=== PATIENT | male | born 1960 | race Caucasian/White ===

== ENCOUNTER 2021-11-06 15:06 | Outpatient (CLI) | payer OTHER, SELFPAY | END 2021-11-06 15:07 | disposition home or self-care (01) | LOC: LKVREF 15:09 | PROVIDERS: PCP Family Medicine; Visit Provider Family Medicine | DX: I10 Essential (primary) hypertension (principal); R60.0 Localized edema; E66.9 Obesity, unspecified; R73.03 Prediabetes | CPT/HCPCS: 84443 ==

== ENCOUNTER 2021-11-19 08:31 | Outpatient (CLI) | payer OTHER, SELFPAY ==
[2021-11-19 14:05] LABS: Chloride* 106 mmol/L (96-114); Potassium* 3.9 mmol/L (3.6-5.1); Sodium* 142 mmol/L (135-149)
[2021-11-19 14:08] LABS: Creatinine* 1.1 mg/dL (0.5-1.5); Estimated Glomerular Filt Rate 77 ml/min
[2021-11-19 14:09] LABS: Blood Urea Nitrogen* 26 mg/dL (7-30); Calcium* 9.2 mg/dL (8.4-10.6); Carbon Dioxide* 29 mmol/L (20-32); Glucose* 127 mg/dL (60-115)
== END 2021-11-19 08:32 | disposition home or self-care (01) ==
LOC: NFLDREF 08:32
PROVIDERS: PCP Family Medicine; Visit Provider Family Medicine
DX: E66.9 Obesity, unspecified (principal); E87.6 Hypokalemia; I10 Essential (primary) hypertension; E78.1 Pure hyperglyceridemia; R60.0 Localized edema; G47.30 Sleep apnea, unspecified
CPT/HCPCS: 80048; 84443

== ENCOUNTER 2022-02-19 12:05 | Outpatient (CLI) | payer OTHER, SELFPAY ==
[2022-02-19 22:03] LABS: Chloride* 95 mmol/L (96-114); Sodium* 137 mmol/L (135-149)
[2022-02-19 22:04] LABS: Potassium* 3.3 mmol/L (3.6-5.1)
[2022-02-19 22:06] LABS: Carbon Dioxide* 34 mmol/L (20-32); Creatinine* 1.1 mg/dL (0.5-1.5); Estimated Glomerular Filt Rate 77 ml/min
[2022-02-19 22:07] LABS: Blood Urea Nitrogen* 24 mg/dL (7-30); Calcium* 9.6 mg/dL (8.4-10.6); Glucose* 109 mg/dL (60-115)
== END 2022-02-19 12:06 | disposition home or self-care (01) ==
LOC: LKVREF 15:51
PROVIDERS: PCP Family Medicine; Visit Provider Family Medicine
DX: I10 Essential (primary) hypertension (principal)
CPT/HCPCS: 80048

== ENCOUNTER 2022-05-08 08:32 | Outpatient (CLI) | payer OTHER, SELFPAY ==
[2022-05-08 13:21] LABS: Albumin* 4.1 g/dL (3.3-5.0)
[2022-05-08 13:24] LABS: Cholesterol* 122 mg/dL (90-199)
[2022-05-08 13:25] LABS: Alanine Aminotransferase* 33 U/L (4-50); Alkaline Phosphatase* 55 U/L (40-150); Aspartate Amino Transferase* 30 U/L (12-35); Bilirubin Direct* 0.3 mg/dL (0.0-0.5); Bilirubin Total* 0.6 mg/dL (0.1-1.5); HDL Cholesterol* 33 mg/dL (>=40); LDL Cholesterol Calculated 28 mg/dL (<100); Total Protein* 6.6 g/dL (6.0-8.3); Triglycerides* 306 mg/dL (40-149)
[2022-05-08 13:57] LABS: PSA Screen* 1.44 ng/mL (0.10-4.00)
== END 2022-05-08 08:33 | disposition home or self-care (01) ==
PROVIDERS: PCP Family Medicine; Visit Provider Family Medicine
DX: Z00.00 Encounter for general adult medical examination without abnormal findings (principal); E66.9 Obesity, unspecified; E78.1 Pure hyperglyceridemia; E87.6 Hypokalemia; I10 Essential (primary) hypertension; Z12.5 Encounter for screening for malignant neoplasm of prostate; Z13.6 Encounter for screening for cardiovascular disorders
CPT/HCPCS: 80061; 80076; 84153; 84443

== ENCOUNTER 2022-06-15 11:28 | Outpatient (CLI) | payer OTHER, SELFPAY ==
--- NOTE | 2022-06-15 11:51 | W.ANESCHARGE ---
Anesthesia Charges Start Date/Time Anesthesia Start Date: 06/15/22 Anesthesia Start Time: 12:19 Stop Date/Time Anesthesia Stop Date: 06/15/22 Anesthesia Stop Time: 12:52
--- NOTE | 2022-06-15 12:56 | W.ANESCHARGE ---
Anesthesia Charges Start Date/Time Anesthesia Start Date: 06/15/22 Anesthesia Start Time: 12:19 Stop Date/Time Anesthesia Stop Date: 06/15/22 Anesthesia Stop Time: 12:52
== END 2022-06-15 11:29 | disposition home or self-care (01) ==
LOC: OP CLINIC 11:28
PROVIDERS: PCP Family Medicine; Visit Provider Surgery
DX: Z12.11 Encounter for screening for malignant neoplasm of colon (principal); K57.30 Diverticulosis of large intestine without perforation or abscess without bleeding; D13.39 Benign neoplasm of other parts of small intestine
CPT/HCPCS: 00811; 45385; 88305; J2704

== ENCOUNTER 2023-06-16 08:00 | Outpatient (CLI) | payer BC, SELFPAY | END 2023-06-16 08:01 | disposition home or self-care (01) | LOC: NFLDREF 16:14 | PROVIDERS: PCP Family Medicine; Referring Provider Family Medicine; Visit Provider Family Medicine | DX: Z00.00 Encounter for general adult medical examination without abnormal findings (principal); E66.9 Obesity, unspecified; E78.1 Pure hyperglyceridemia; I10 Essential (primary) hypertension; R73.03 Prediabetes | CPT/HCPCS: 80053; 80061; 84550; 86431; G0103 ==

== ENCOUNTER 2023-07-06 18:08 | Emergency (ER) | payer BC, SELFPAY ==
--- NOTE | 2023-07-06 18:13 | CT_ITS ---
Patient: GILL GARNER Facility:?[facility] RIS Patient ID:?[id number] Site Patient ID:?[id number]. Site :?1960 Study:?CT-Neck Angio CODE STROKE W/95CC ISOVUEABOWEN NEURO -07/06/2023 6:37:53 PM Ordering Physician:MALU Final Report: INDICATION: Acute stroke. TECHNIQUE: CTA neck with contrast bolus tracking, 3D angiographic rendering using maximum intensity projection (MIP) and images permanently archived. FINDINGS: There is carotid atherosclerosis. There is no significant carotid artery stenosis or dissection. There is no significant vertebral artery stenosis or dissection. The soft tissues of the neck are within normal limits. The cervical spine is in normal alignment. Degenerative changes are noted in the cervical spine. IMPRESSION: 1. No significant carotid or vertebral artery stenosis or dissection. 2. Per preliminary report: Apical segment right lower lobe pulmonary nodule measuring 7 mm (recommend CT chest follow-up in 6-12 months). Multilevel degenerative disc disease involving the thoracic spine. Multiple dental caries and periapical lucency surrounding the left maxillary 1st molar. Please note that all CT scans at this facility use dose modulation, iterative reconstruction, and/or weight-based dosing when appropriate to reduce radiation dose to as low as reasonably achievable. Dictated by Michel Rios MD @ 07/07/2023 7:51:02 AM Signed by:?Michel Rios MD @07/07/2023 7:51:02 AM (Electronic Signature)
--- NOTE | 2023-07-06 18:13 | CT_ITS ---
Patient: GILL GARNER Facility:?[facility] RIS Patient ID:?[id number] Site Patient ID:?[id number]. Site :?1960 Study:?CT-Head Angio CODE STROKE W/95CC ISOVUEABBOTT NEURO -07/06/2023 6:38:01 PM Ordering Physician:MALU Final Report: INDICATION: Acute stroke. TECHNIQUE: CTA head with contrast bolus tracking, 3D angiographic rendering using maximum intensity projection (MIP) and images permanently archived. FINDINGS: There is scattered intracranial atherosclerotic disease. There is normal opacification of the intracranial vasculature. There is no large vessel occlusion. No aneurysm is identified. IMPRESSION: No large vessel occlusion. Please note that all CT scans at this facility use dose modulation, iterative reconstruction, and/or weight-based dosing when appropriate to reduce radiation dose to as low as reasonably achievable. Dictated by Michel Rios MD @ 07/07/2023 7:48:29 AM Signed by:?Michel Rios MD @07/07/2023 7:48:29 AM (Electronic Signature)
--- NOTE | 2023-07-06 18:13 | CT_ITS ---
Patient: GILL GARNER Facility:?[facility] RIS Patient ID:?[id number] Site Patient ID:?[id number]. Site :?1960 Study:?CT-Head W/O PETTIT NEURO [id number] 3413-07/06/2023 6:36:15 PM Ordering Physician:MALU Final Report: Indication: Stroke code. Technique: Noncontrast CT of head was performed. Comparison: None available. Findings: Brain parenchyma: Normal cool-white matter differentiation. No evidence of acute ischemia. No acute intraparenchymal hemorrhage. No mass effect or midline shift. Extra-axial spaces: No extra-axial collection. Ventricular system: Unremarkable for age. Paranasal sinuses and mastoid air cells: Near-complete opacification of the left maxillary sinus with increased central density which can be seen in the setting of fungal sinusitis. Suggestion of periapical lucency surrounding and adjacent left maxillary molar. Mild mucosal thickening in the right maxillary sinus otherwise clear. Orbits: Unremarkable. Bones: No calvarial fracture. Impression: 1. No acute intracranial abnormality identified. 2. Opacification of the left maxillary sinus with periapical lucency surrounding the adjacent left maxillary 1st molar concerning for periapical abscess. Please note that all CT scans at this facility use dose modulation, iterative reconstruction, and/or weight-based dosing when appropriate to reduce radiation dose to as low as reasonably achievable. Dictated by Brandie Dey MD @ 07/06/2023 7:04:22 PM ----- ADDENDUM ----- Impression one was relayed to Dr. Roa on 07/06/2023 7:07 p.m. Dictated by Brandie Dey MD @ Jul 06 2023 7:08PM Signed by:?Brandie Dey MD @07/06/2023 7:04:22 PM (Electronic Signature)
[2023-07-06 18:17] VITALS: BP 144/100; PULSE 66; RESP 16; TEMP 37.1; O2SAT 97; BMI 41.1
[2023-07-06 18:25] LABS: Basophils Absolute Auto 0.04 K/uL (0.00-0.30); Basophils Percent Auto 0.6 % (0.0-3.0); Eosinophils Absolute Auto 0.17 K/uL (0.00-0.50); Eosinophils Percent Auto 2.6 % (0.0-7.0); Hematocrit 47.3 % (37.0-53.0); Hemoglobin* 15.3 gm/dL (13.5-17.5); Lymphocytes Absolute Auto 1.88 K/uL (0.90-2.90); Lymphocytes Percent Auto 28.6 % (20-44); Mean Corpuscular HGB Conc 32 gm/dL (32-36); Mean Corpuscular Hemoglobin 28 pg (26-34); Mean Corpuscular Volume 87 fL (80-100); Monocytes Percent Auto 10.5 % (0.0-11.0); Neutrophils Percent Auto 57.7 % (42.0-72.0); Platelet Count* 212 K/uL (140-440); RDW Coefficient of Variation % 13.6 % (11.5-15.5); Red Blood Count 5.43 m/uL (4.30-5.90); White Blood Count* 6.58 K/uL (4.50-11.00)
[2023-07-06 18:33] VITALS: PULSE 68; O2SAT 97
[2023-07-06 18:35] LABS: Slide Review Reflex No
[2023-07-06 18:45] VITALS: PULSE 67; O2SAT 95
[2023-07-06 18:47] VITALS: BP 138/92; PULSE 69; O2SAT 95
[2023-07-06 18:57] LABS: Chloride* 103 mmol/L (96-114); Sodium* 142 mmol/L (135-149)
[2023-07-06 18:58] LABS: Potassium* 3.4 mmol/L (3.6-5.1)
[2023-07-06 19:00] LABS: Creatinine* 1.1 mg/dL (0.5-1.5); Est. Creatinine Clearance* 69.63; Estimated Glomerular Filt Rate 76 ml/min
[2023-07-06 19:01] LABS: Anion Gap 13 mEq/L (7-15); Blood Urea Nitrogen* 24 mg/dL (7-30); Calcium* 10.6 mg/dL (8.4-10.6); Carbon Dioxide* 26 mmol/L (20-32); Glucose* 95 mg/dL (60-115)
--- NOTE | 2023-07-06 19:01 | ED_ITS ---
HPI - General Adult General Date Seen: 07/06/23 Chief complaint: Neuro Symptoms/Altered Deficit Stated complaint: Lost vision R eye, sent by clinic Time Seen by Provider: 07/06/23 18:13 History of Present Illness HPI narrative: Very pleasant 63-year-old gentleman with a past medical history of hypertension, dyslipidemia, overweight, erectile dysfunction go presenting to the ER today from the optometry clinic in [place] with central retinal artery occlusion a ffecting his right eye. At about 1:00 p.m. today he had abrupt painless vision loss affecting almost all vision in his right eye. He went to an urgent care who then referred him to the Eye Clinic. He had an eye exam that revealed a right central retinal artery occlusion. 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 The letter says, ?tie was referred to our clinic from the local urgent care for loss of vision. He presented in our office (4:00 p.m.) with loss of vision in his right that it started at 1:00 p.m. today (07/06/2023). He has had a central retinal artery occlusion and the following blood work is recommended immediately to rule out GCA and run a stroke evaluation. ESR CRP Platelets Fasting blood sugar Glycosylated hemoglobin CBC PT/PTT Lipid profile NENO RF FTA-ABS Serum protein electrophoresis Hemoglobin electrophoresis Anti phospholipid antibody He presented here to the ER at [place]. He has loss of vision in his right I can only see a small speck of bright in the central vision. Sometimes he can see my face and sometimes the cabinet by me. He can not really read or count fingers or see letters. Left eye is normal. No other symptoms. No headache. No facial numbness or weakness. No trouble chewing. No numbness or weakness in his arms or legs. He has no history of AFib. He is not anticoagulated. He had been on aspirin in the past but is not taking currently. No recent eye trauma. No history of autoimmune disease. Related Data Home Medications Medication Instructions Recorded Confirmed coenzyme Q10 100 mg capsule mg PO DAILY 11/06/21 07/06/23 cholecalciferol (vitamin D3) 125 125 mcg PO QDAY 02/05/22 07/06/23 mcg (5,000 unit) capsule Previous Rx's Medication Instructions Recorded comp.stocking,thigh,long,x-lrg See Rx Instructions miscellaneous 11/06/21 .COMPLEX #12 ea sildenafil 25 mg tablet 25 - 100 mg (1 - 4 x 25 mg) PO 12/22/22 QDAY PRN sexual activity #30 tabs fenofibrate 54 mg tablet 54 mg PO QDAY #90 ea 06/18/23 furosemide 20 mg tablet 40 mg (2 x 20 mg) PO DAILY #180 06/18/23 tabs losartan 100 1 tab PO DAILY #90 tabs 06/18/23 mg-hydrochlorothiazide 25 mg tablet metoprolol succinate 50 mg 50 mg PO DAILY #90 tabs 06/18/23 tablet,extended release 24 hr potassium chloride 20 mEq 20 - 40 meq (1 - 2 x 20 mEq) PO 06/18/23 tablet,extended release BID #270 tabs rosuvastatin 40 mg tablet 40 mg PO DAILY #90 tabs 06/18/23 Allergies Allergy/AdvReac Type Severity Reaction Status Date / Time Penicillins Allergy childhood Verified 07/06/23 18:41 reaction PFSH PFSH Medical History (Updated 07/06/23 @ 19:01 by Brian Roa MD) Gout ?M10.9 - Gout, unspecified (ICD-10) Anemia ?D64.9 - Anemia, unspecified (ICD-10) Erectile dysfunction ?N52.9 - Male erectile dysfunction, unspecified (ICD-10) Obesity ?E66.9 - Obesity, unspecified (ICD-10) Prediabetes ?R73.03 - Prediabetes (ICD-10) Leg edema ?R60.0 - Localized edema (ICD-10) Surgical History (Updated 11/05/21 @ 09:54 by Arlen Calles) History of colonoscopy ?Z98.890 - Other specified postprocedural states (ICD-10) Social History Smoking Status: Former smoker (Quit years ago ) Little interest or pleasure in doing things: not at all Feeling down, depressed, or hopeless: not at all Exam Narrative: Exam Narrative: Constitutional: Appears well-developed and well-nourished. Alert. Conversant. Non toxic. HENT: Head: Atraumatic. Nose: Nose normal. Mouth/Throat: Oral mucosa is clear and moist. no trismus. Pharynx normal. Tonsils symmetric. No tonsillar enlargement, erythema, or exudate. Eyes: Conjunctivae normal. EOM normal. Pupils equal, round, and bilaterally dilated (probably from my exam in clinic) and largely on reactive to light. He is able to see small bits of vision in the right eye but says his vision in the left eye is normal. No scleral icterus. Neck: Normal range of motion. Neck supple. No tracheal deviation present. Cardiovascular: Normal rate, regular rhythm. No gallop. No friction rub. No murmur heard. Symmetric radial artery pulses Pulmonary/Chest: Effort normal. No stridor. No respiratory distress. No wheezes. No rales. No rhonchi . No tenderness. Abdominal: Soft. Bowel sounds normal. No distension. No mass. No tenderness. No rebound. No guarding. Musculoskeletal: RUE: Normal range of motion. No tenderness. No deformity LUE: Normal range of motion. No tenderness. No deformity RLE: Normal range of motion. No edema. No tenderness. No deformity LLE: Normal range of motion. No edema. No tenderness. No deformity Lymph: No cervical adenopathy. Neurological: Mental status normal. Attention normal. Alert and oriented x3. GCS 15. Memory normal. Speech fluent. Cognition normal. Cranial Nerves intact II-XII except I did not formally test gag or visual acuity. EOMI. Palate elevates symmetrically and tongue protrudes in the midline. Strength: 5/5 trapezius on the right and left 5/5 deltoid on the right and left 5/5 biceps on the right and left 5/5 triceps on the right and left 5/5 trade economist on the right and left 5/5 thumb opposition on the right and le ft 5/5 finger abduction on the right and le ft 5/5 hip flexors (L3) on the right and le ft 5/5 quadriceps (L4) on the right and lef t 5/5 tibialis anterior on the right and l eft 5/5 EHL (L5) on the right and left 5/5 gastrocnemius (S1) on the right and left 5/5 hamstring on the right and left Sensation intact to light touch in both upper extremities (C4-T1) Sensation intact to light touch in Both lower extremities (L4-S1). Finger to nose and coordination normal. Gait normal. Skin: Skin is warm and dry. No rash noted. No pallor. Normal capillary refill. Psychiatric: Normal mood. Normal affect. When discussing the potential seriousness of his acute [employer]ODUCTION ENGINE REPAIRER Ob he becomes emotional but he is appropriate and goal oriented Const: Vital Signs, click to edit/add: Vital Signs - 24 hr 07/06/23 18:17 Temperature 98.7 F Pulse Rate [Pulse Oximeter] 66 Respiratory Rate 16 Blood Pressure [Ri ght Upper Arm] 144/100 H Pulse Oximetry 97 Oxygen Delivery Me thod Room Air Course Vital Signs Vital signs: Initial Vital Signs Temperature 98.7 F 07/06/23 18:17 Temperature Source Temporal Artery Scan 07/06/23 18:17 Pulse Rate 66 07/06/23 18:17 Pulse Rhythm Regular 07/06/23 18:17 Pulse Strength 3+ Normal 07/06/23 18:17 Respiratory Rate 16 07/06/23 18:17 Blood Pressure 144/100 H 07/06/23 18:17 Blood Pressure Mean 114 H 07/06/23 18:17 Blood Pressure Position Semi-Fowlers 07/06/23 18:17 Pulse Oximetry 97 07/06/23 18:17 Oxygen Delivery Method Room Air 07/06/23 18:17 Vital Signs Temperature 98.7 F 07/06/23 18:17 Pulse Rate 66 07/06/23 18:17 Respiratory Rate 16 07/06/23 18:17 Blood Pressure 144/100 H 07/06/23 18:17 Pulse Oximetry 97 07/06/23 18:17 Oxygen Delivery Method Room Air 07/06/23 18:17 Temperature 98.7 F 07/06/23 18:17 Pulse Rate 66 07/06/23 18:17 Respiratory Rate 16 07/06/23 18:17 Blood Pressure 144/100 H 07/06/23 18:17 Pulse Oximetry 97 07/06/23 18:17 Oxygen Delivery Method Room Air 07/06/23 18:17 Medical Decision Making MDM Narrative Medical decision making narrative: This patient presented with acute painless right eye vision loss and was sent from the Eye Clinic indicating that he has already had a retina exam and has acute central retinal artery occlusion. We activated a stroke she activation and obtain initial vital signs, IV, EKG (which shows sinus rhythm). He was sent for emergent noncontrast head CT (which is resulted by verbal report from a consulting radiology showing no acute findings, no bleed). He also had acute CT angiogram of his head neck (not red or report at the time of this dictation. We made stat consultation with the stroke neurology team at [facility]. They advised against IV thrombolytics especially since were more than 4.5 hours out from onset of symptoms. There is also no benefit to thrombolytics in small studies. They indicate that there would be limited benefit to intra-arterial thrombolytics at this time. We discussed other options including intra-ocular pressure lowering with a CTs all might and or hyperbaric treatment. Stroke Neurology agrees the plan to consult [facility] to see if hyperbarics would be a benefit I called stat to [facility]. Discussed with Dr. Webb from the ER and then [facility] Milan (hyperbarics) this agrees that the patient would be a candidate for hyperbaric therapy and wants us to transfer him rapidly (but does not require air EMS) to the ER at [place] for hyperbaric therapy. Will transfer by ground EMS. While the patient was here in the ER we did administer IV CTs all my did 500 mg try to lower his intra-ocular pressure. We considered topical beta blockers but since he has baseline heart rate of 60, 1 hold off on beta blockers due to the risk of precipitating worsening bradycardia. We also had the patient perform ocular massage I have started laboratory workup to look at inflammatory markers. At the time of transfer his white count is normal and CRP is normal but none of his inflammatory markers are back. At this point would hold off on any steroids . He is not having any left eye symptoms. No other symptoms lately to suggest jaw claudication or other headache to suggest giant cell arteritis. Will administer aspirin, in case this might be a atherogenic plaque. Lab Data Labs: Lab Results 07/06/23 Range/Units 18:18 WBC 6.58 (4.50-11.00) K/uL RBC 5.43 (4.30-5.90) m/uL Hgb 15.3 (13.5-17.5) gm/dL Hct 47.3 (37.0-53.0) % MCV 87 (80-100) fL MCH 28 (26-34) pg MCHC 32 (32-36) gm/dL RDW Coeff of [place] 13.6 (11.5-15.5) % Plt Count 212 (140-440) K/uL Neut % (Auto) 57.7 (42.0-72.0) % Lymph % (Auto) 28.6 (20-44) % [place] % (Auto) 10.5 (0.0-11.0) % Eos % (Auto) 2.6 (0.0-7.0) % Baso % (Auto) 0.6 (0.0-3.0) % Neut # (Auto) 3.80 (1.7-7.0) K/uL Lymph # (Auto) 1.88 (0.90-2.90) K/uL [place] # (Auto) 0.70 (0.00-0.90) K/UL Eos # (Auto) 0.17 (0.00-0.50) K/uL Baso # (Auto) 0.04 (0.00-0.30) K/uL Abs Immat Gran (auto) 0.00 (0.00-0.30) K/uL Imm/Tot Granulo (auto) 0.0 % APTT Cancelled Imaging Data CT scan - head: Attestation: I have reviewed the pertinent imaging results. My impression: Verbal report from radiology indicates that there is no acute finding. ECG Data Attestation: I personally reviewed and interpreted this ECG as follows: Interpretation: Sinus bradycardia. Rate 58 LA 184 QRS axis normal axis. No pathologic Q-waves. ST segment/T wave: No ST segment elevation depression. QTc: 408 Discharge Plan Discharge Clinical Impression: CRAO (central retinal artery occlusion) Patient Disposition: Xfer Other Prescriptions: No Action coenzyme Q10 100 mg capsule PO DAILY sildenafil 25 mg tablet 25 - 100 mg PO QDAY PRN (Reason: sexual activity) Qty: 30 5RF Rx Instructions: administer 30 minutes to 4 hours before activity rosuvastatin 40 mg tablet 40 mg PO DAILY Qty: 90 2RF potassium chloride 20 mEq tablet extended release 20 - 40 meq PO BID Qty: 270 3RF Rx Instructions: 40mEq each morning, 20mEq each afternoon metoprolol succinate 50 mg tablet extended release 24 hr 50 mg PO DAILY Qty: 90 1RF losartan-hydrochlorothiazide 100-25 mg tablet 1 tab PO DAILY Qty: 90 1RF furosemide 20 mg tablet 40 mg PO DAILY Qty: 180 1RF fenofibrate 54 mg tablet 54 mg PO QDAY Qty: 90 2RF cholecalciferol (vitamin D3) 125 mcg (5,000 unit) capsule 125 mcg PO QDAY comp.stocking,thigh,long,x-lrg Misc See Rx Instructions miscellaneous .COMPLEX Qty: 12 1RF Rx Instructions: applied daily to legs miscellaneous; Stand Alone Forms: MyHealth Info Instructions
[2023-07-06 19:02] VITALS: BP 153/98
[2023-07-06 19:02] LABS: INR 1.04 (0.91-1.10); Partial Thromboplastin Time* 30 Seconds (23-33); Prothrombin Time 14.2 Seconds
[2023-07-06 19:04] LABS: C Reactive Protein* < 0.5 mg/dL (0.5-1.0)
[2023-07-06] MEDS: ASPIRIN EC 325 MG TABLET PO (19:05)
[2023-07-06 20:09] LABS: Erythrocyte SedimentationRate* 13 mm/hr (2-15)
== END 2023-07-06 19:11 | disposition other institution (70) ==
PROVIDERS: Emergency Provider Emergency Medicine; PCP Family Medicine
DX: H34.12 Central retinal artery occlusion, left eye (principal)
CPT/HCPCS: 36415; 70450; 70496; 70498; 80048; 85025; 85610; 85651; 85730; 86140; 93005; 96365; 99284; 99285; 99291; A9270; J1120; Q9967

== ENCOUNTER 2023-07-06 19:05 | Outpatient (CLI) | payer BC, SELFPAY | END 2023-07-06 19:06 | disposition home or self-care (01) | LOC: AMB 07-16 02:24 | PROVIDERS: PCP Family Medicine; Visit Provider Emergency Medicine | DX: H34.11 Central retinal artery occlusion, right eye (principal) | CPT/HCPCS: A0425; A0429 ==

== ENCOUNTER 2023-07-30 11:41 | Outpatient (CLI) | payer BC, SELFPAY | END 2023-07-30 11:42 | disposition home or self-care (01) | PROVIDERS: PCP Family Medicine; Visit Provider Family Medicine | DX: E87.6 Hypokalemia (principal); R45.89 Other symptoms and signs involving emotional state | CPT/HCPCS: 84443 ==

== ENCOUNTER 2023-12-10 08:15 | Outpatient (CLI) | payer BC, SELFPAY | END 2023-12-10 08:16 | disposition home or self-care (01) | LOC: LKVREF 08:16 | PROVIDERS: PCP Family Medicine; Visit Provider Family Medicine | DX: E78.1 Pure hyperglyceridemia (principal); I10 Essential (primary) hypertension | CPT/HCPCS: 80053; 80061 ==

== ENCOUNTER 2024-01-19 14:48 | Outpatient (CLI) | payer BC, SELFPAY ==
--- NOTE | 2024-01-19 15:00 | CRLHL7_ITS ---
For Patients: As a result of the Century Cures Act, medical imaging exams and procedure reports are released immediately into your electronic medical record. You may view this report before your referring provider. If you have questions, please contact your health care provider. Indication: SOLITARY PULMONARY NODULE Technique: Noncontrast CT chest Please note that all CT scans at this facility use dose modulation, iterative reconstruction, and/or weight-based dosing when appropriate to reduce radiation dose to as low as reasonably achievable. Comparison: CTA neck 07/06/2023 Findings: 5.4 millimeter right lower lobe pulmonary nodule, 51. 3.3 millimeter subpleural nodule right lower lobe, 45. Additional 3 millimeter subpleural nodule right anterior lung, . Subpleural nodule right lower lobe previously noted, measures 6.6 millimeters, . Linear subsegmental atelectasis/scarring in both lower lobes. Perifissural nodules on the left measure up to 5.9 millimeters. No infiltrate or edema. No effusion or pneumothorax. No adenopathy. Bridging osteophyte formation thoracic spine. Gallbladder absent. No adrenal nodule. Impression: Bilateral pulmonary nodules measure up to 6.6 millimeters. One year follow-up recommended. Please note that all CT scans at this facility use dose modulation, iterative reconstruction, and/or weight-based dosing when appropriate to reduce radiation dose to as low as reasonably achievable. Dictated by Remberto Cervantes MD @ 01/21/2024 9:53:19 AM (Electronically Signed)
== END 2024-01-19 14:49 | disposition home or self-care (01) ==
LOC: CT 14:48
PROVIDERS: PCP Family Medicine; Visit Provider Family Medicine
DX: R91.1 Solitary pulmonary nodule (principal); R91.8 Other nonspecific abnormal finding of lung field; Z91.89 Other specified personal risk factors, not elsewhere classified
CPT/HCPCS: 71250

== ENCOUNTER 2024-08-03 07:58 | Outpatient (CLI) | payer BC, SELFPAY | END 2024-08-03 07:59 | disposition home or self-care (01) | LOC: NFLDREF 08-08 05:06 | PROVIDERS: PCP Family Medicine; Referring Provider Family Medicine; Visit Provider Family Medicine | DX: E78.1 Pure hyperglyceridemia (principal); I10 Essential (primary) hypertension; R73.03 Prediabetes; M10.9 Gout, unspecified; Z12.5 Encounter for screening for malignant neoplasm of prostate | CPT/HCPCS: 80053; 80061; 84550; G0103 ==

== ENCOUNTER 2024-08-31 08:43 | Outpatient (CLI) | payer BC, SELFPAY ==
--- NOTE | 2024-08-31 09:00 | CRLHL7_ITS ---
For Patients: As a result of the 21st Century Cures Act, medical imaging exams and procedure reports are released immediately into your electronic medical record. You may view this report before your referring provider. If you have questions, please contact your health care provider. INDICATION: Lung nodule. TECHNIQUE: CT chest without contrast. COMPARISON: CT 01/19/2024 FINDINGS: Lungs and pleura: Pulmonary nodules are stable measuring up to 6 millimeters. No new or enlarging nodule a right lower pole micronodule not seen on the current study. Basilar atelectasis. Heart and vasculature: Heart size is normal. Thoracic aorta and pulmonary artery are normal in caliber. Coronary artery calcification. Lymph nodes/mediastinum: No mediastinal, hilar, or axillary adenopathy. Chest wall: No masses. Upper abdomen: Cholecystectomy. Bones: Unremarkable for age. IMPRESSION: 1. Pulmonary nodules appear stable. No new or enlarging nodules are seen. Nodules measure up to 6 millimeters. [employer] GUID[employer]INES - SOLID NODULES: SINGLE LOW RISK - nodule less than 6 mm: No routine follow-up. - nodule 6-8 mm: CT at 6-12 months, then consider CT at 18-24 months. - nodule greater than 8 mm: Consider CT at 3 months, PET/CT or tissue sampling. SINGLE HIGH RISK - nodule less than 6 mm: Optional CT at 12 months. - nodule 6-8 mm: CT at 6-12 months, then CT at 18-24 months. - nodule greater than 8 mm: Consider CT at 3 months, PET/CT or tissue sampling. MULTIPLE LOW RISK - nodule less than 6 mm: No routine follow-up. - nodule 6-8 mm: CT at 3-6 months, then consider CT at 18-24 months. - nodule greater than 8 mm: CT at 3-6 months, then consider CT at 18-24 months. MULTIPLE HIGH RISK - nodule less than 6 mm: Optional CT at 12 months. - nodule 6-8 mm: CT at 3-6 months, then at 18-24 months. - nodule greater than 8 mm: CT at 3-6 months, then at 18-24 months. Please note that all CT scans at this facility use dose modulation, iterative reconstruction, and/or weight-based dosing when appropriate to reduce radiation dose to as low as reasonably achievable. Dictated by Moni Ochoa MD @ 09/02/2024 7:49:03 AM (Electronically Signed)
== END 2024-08-31 08:44 | disposition home or self-care (01) ==
LOC: CT 08:46
PROVIDERS: PCP Family Medicine; Visit Provider Family Medicine
DX: R91.1 Solitary pulmonary nodule (principal); Z91.89 Other specified personal risk factors, not elsewhere classified
CPT/HCPCS: 71250

== ENCOUNTER 2024-12-20 08:44 | Day surgery (SDC) | payer BC, SELFPAY ==
[2024-12-20] VITALS (21 sets, daily range): BP systolic 131–183; BP diastolic 46–123; PULSE 55–78; RESP 13–19; TEMP 36.1–36.6; O2SAT 92–98; BMI 44.0
[2024-12-20] MEDS: TRANEXAMIC ACID 100 MG/ML INJ 1000 MG IV (08:51)
--- NOTE | 2024-12-20 09:32 | W.PM.H&PU ---
History & Physical Update History & Physical Update H&P Reviewed and patient assessed: No changes noted
--- NOTE | 2024-12-20 09:33 | P.ORPRC_ITS ---
Procedure Note Date of procedure: 12/20/24 Procedure: PREOPERATIVE DIAGNOSIS: 1. Left knee osteoarthritis POSTOPERATIVE DIAGNOSES: 1. Left knee osteoarthritis PROCEDURE: 1. Left total knee arthroplasty SURGEON: Sherwin Lowery MD VOLUNTEER FIRE FIGHTER: Sandee Hernandez P.A.-C.. An administrative personal assistant was critical for this case to aide in patient positioning, suture manipulation, arm positioning, instrument positioning, and closure. ANESTHESIA: [Spinal/General] IMPLANTS: DePuy Attune femoral posterior stabilized component size 9; DePuy Attune tibial base rotating platform size 8; DePuy Attune tibial insert rotating platform posterior stabilized polyethylene size 9, 5 mm; and an Attune patella medialized dome size 38 mm. EBL: 300 ml TOURNIQUET TIME: 117 minutes at 275 mmHg COMPLICATIONS: None evident INDICATIONS: Sree is a 64-year-old male who has chronic knee pain secondary to osteoarthritis. Symptoms have worsened despite non operative treatment. Patient is now interested in proceeding with total knee arthroplasty for improved function, decreased pain and better quality of life. Prior to the procedure, risks and benefits of the operative and non operative treatment were discussed with patient. After discussion of risks, benefits, and alternatives of surgery, informed consent was obtained and the operative site was marked. FINDINGS: Moderate to severe tricompartmental osteoarthritis with peripheral osteophyte formation. PROCEDURE: Patient was seen preoperatively and operative site was marked. Adductor canal and genicular nerve blocks were performed by anesthesia staff. Patient was then brought to the operating room, where spinal anesthesia was administered by the anesthesia staff. Patient was then placed into the supine position on the OR table and all bony prominences were well padded. Preoperative prophylactic antibiotics were administered intravenously. A tourniquet was placed on the thigh of the operative leg. The left lower extremity was prepped and draped in usual sterile fashion. A surgical time-out was performed confirming patient identity, surgical procedure, and surgical site. Operative extremity was elevated and exsanguinated with an Esmarch and tourniquet was inflated to 275 mmHg. The tourniquet remained inflated for 117 mi nutes before it was deflated. An anterior longitudinal incision was made and carried down through the subcutaneous tissues. The quadriceps tendon, medial patellar retinaculum, and patellar tendon were visualized. A medial quadriceps splitting parapatellar arthrotomy was performed. The proximal medial tibia was subperiosteal exposed distal to the joint line. The retropatellar fat pad was excised. The knee was flexed and patella everted. A curved osteotome was used to enter the semimembranous bursa medially at the level of the joint line. Medial and lateral tibial plateau osteophytes were removed with a rongeur. The medial meniscus was excised at the meniscal synovial junction. The anterior cruciate ligament was excised. A Z-retractor was placed medially and a right angle Hohmann retractor was placed anterior lateral to the lateral meniscus. A partial lateral meniscectomy was performed. The intramedullary drill was utilized to open the intramedullary canal. ?Intramedullary alignment guide was inserted. The distal femoral cutting block, set at 5 degrees of valgus with a distal femoral resection of 10 mm, was secured with pins, and the distal femoral osteotomy was performed. ?Using the posterior condylar referencing guide, femur was sized to a size 9, and pins were drilled for 3 degrees of external rotation, which corresponded with Whitesides line and the epicondylar axis. ?A 4-in-1 cutting jig was inserted at 3 degrees of external rotation. ?The anterior and posterior condylar cuts were performed followed by anterior and posterior chamfer cuts. The box cutting guide was then secured to the distal femur with pins and the box osteotomy was performed. ? ? We then turned our attention back to the tibia. ?Ranasall maneuver was performed and remainder of the lateral meniscus, medial meniscus, and PCL were excised. ?A retractor was placed along the posterior tibia. ?Extramedullary guide was secured around the ankle in line with the subcutaneous tibial crest. ?The tibial cutting block, set to remove 4 mm of bone from medial tibial plateau and 9 mm of bone from lateral tibial plateau, was secured proximally with pins. ?Tibial osteotomy was performed with care taken to protect the collateral ligaments. ?Spacer blocks were inserted, which confirmed symmetric flexion and extension gaps.?The tibia was then sized to a size 8, and tibial base plate was secured. Tibia was then prepped with the appropriate drill and punch. Trial femur and tibial components with a 5 mm tibial polyethylene component were inserted. With trial components in place, the knee was noted to be tight in both flexion and extension. Trial components were subsequently removed and tibia was recut removing an extra 2 mm of bone from the tibia. After recutting the tibia, the tibia was reprepped with the appropriate punch. Trial femur and tibial components with a 5 mm tibial polyethylene component were then reinserted. Knee was able to be brought out to full extension and had symme tric flexion-extension gaps. ?The patella was everted and osteochondral junction was exposed. ?The patella measured 27 mm in thickness. ?The patellar osteotomy was performed, leaving 17 mm of remnant patella. ?Three lug holes were drilled for the 38 mm patella button and the patella button was inserted. The knee was brought through a full range of motion. ?Soft tissue tension, collateral ligament stability, and patella tracking were confirmed to be satisfactory. ?Trial components were then removed. ??After removing the trial components, a bone plug was placed in the distal femur. The exposed bony surfaces of the tibia, femur, and patella were then thoroughly irrigated with pulse lavage and dried. ? Cement was mixed on the back table and was subsequently introduced onto the tibia and tibial base plate. ?Tibial base plate was then impacted into position, and extruded cement was removed. ?Cement was then applied to the distal femur and posterior condyles of the femoral prosthesis. ?The femoral prosthesis was impacted into position, extruded cement was removed, and a trial polyethylene was inserted. ?Knee was then brought out to full extension for remainder of drying. ?Cement was then applied to the patella and patellar button. The patella button was clamped into position, and extruded cement was removed. ?While the cement was drying, knee was soaked in a sterile iodine solution. ? After the cement had dried, the knee was flexed and the trial tibial component was removed. The tourniquet was released . The soft tissues were then irrigated with pulse lavaged and hemostasis was achieved with electrocautery. A formal size9, 5 mm rotating platform posterior stabilized polyethylene was then secured into position. ? The parapatellar arthrotomy was closed with #1 Vicryl [id number] interrupted sutures followed by a running #1 Stratafix suture. ?Subcutaneous soft tissues were again irrigated normal saline. Skin was closed with 2-0 Vicryl inverted, interrupted, subcutaneous stitches followed by running 2-0 Stratafix and 4-0 Monocryl subcuticular stitches. ?The incision was then sealed with Dermabond and sterile dressing was applied. ?The patient was then transfe rred to the recovery room in stable condition. POSTOPERATIVE PLAN: 1. Patient will be admitted to the hospital overnight for observation, where he will follow the postoperative total knee arthroplasty protocol. 2. Mobilize with physical therapy and occupational therapy. -Weight bear as tolerated right lower extremity. 3. Pain control: -Acetaminophen and Oxycodone for pain as needed. -IV pain medications for breakthrough pain. -Ice for pain and swelling. 4. Postoperative prophylactic antibiotics x2 doses 5. DVT prophylaxis: -aspirin 81 mg b.i.d. for 35 days. -SCDs 6. Follow-up in Orthopedic Clinic in 1-2 weeks.
[2024-12-20] MEDS: LACTATED RINGERS 1000 ML 1,000 ML 100 ML IV (09:50)
[2024-12-20] MEDS: SODIUM CHLORIDE 0.9 % (FLUSH) 10 ML SYRINGE IVF (09:50)
[2024-12-20] MEDS: ACETAMINOPHEN 500 MG TABLET 1000 MG PO ×3 (09:55→23:41)
[2024-12-20] MEDS: OXYCODONE (CR) 10 MG TAB.ER.12H PO (09:56)
[2024-12-20] MEDS: CELECOXIB 200 MG CAPSULE PO ×2 (09:56→21:48)
[2024-12-20] MEDS: MIDAZOLAM HCL 1 MG/ML inj IVP (09:59)
--- NOTE | 2024-12-20 12:02 | P.ANES_ITS ---
Anesthesia Charges Start Date/Time Anesthesia Start Date: 12/20/24 Anesthesia Start Time: 10:33 Stop Date/Time Anesthesia Stop Date: 12/20/24 Anesthesia Stop Time: 14:23 Coding CPT Codes CPT Codes: ANESTH KNEE ARTHROPLASTY - 25770 ([id number]) P3 - PATIENT W/SEVERE SYS DISEASE, QK - POLISHER BALANCE SCREWHEAD 2-4 CNCRNT ANES PROC, QX - DIRECT CUSTOMER SERVICE REPRESENTATIVE SVC W/ MD MED DIRECTION
--- NOTE | 2024-12-20 12:02 | W.PM.NB ---
Nerve Block Nerve Block Time Seen by Provider: 10:00 Date Seen: 12/20/24 Type of block requested by surgeon for post-operative analgesia: adductor canal Side: left Time out performed: Yes Verification of patient name: Yes Verification of date of : Yes Site marking: site marked Name of person performing procedure: Luis Enrique Continuous monitoring Was continuous monitoring of O2 sat, B/P, nurse monitoring, recorded every 15 minutes?: Yes Procedure Checklist: sterile prep, needles and gloves Ultrasound guided. Images saved: Yes Medications given in 5ml increments after negative aspiration: Marcaine %: 0.25 mL: 15 Needle gauge: 20 Precedex (mcg): 25 Patient tolerated procedure well: Yes Block Charges Block Charge (with Pro Fee): Femoral Nerve Use of Ultrasound Machine for Block: Yes- US Guidance/pain block
--- NOTE | 2024-12-20 12:02 | W.PM.NB ---
Nerve Block Nerve Block Time Seen by Provider: 10:00 Date Seen: 12/20/24 Type of block requested by surgeon for post-operative analgesia: geniculars Side: left Time out performed: Yes Verification of patient name: Yes Verification of date of : Yes Site marking: site marked Name of person performing procedure: Luis Enrique Continuous monitoring Was continuous monitoring of O2 sat, B/P, youth nutritional monitor, recorded every 15 minutes?: Yes Procedure Checklist: sterile prep, needles and gloves Ultrasound guided. Images saved: Yes Medications given in 5ml increments after negative aspiration: Marcaine %: 0.25 mL: 9 Needle gauge: 25 Patient tolerated procedure well: Yes Block Charges Block Charge (with Pro Fee): Genicular Nerve Block
--- NOTE | 2024-12-20 12:02 | W.ANESCHARGE ---
Anesthesia Charges Start Date/Time Anesthesia Start Date: 12/20/24 Anesthesia Start Time: 10:33 Stop Date/Time Anesthesia Stop Date: 12/20/24 Anesthesia Stop Time: 14:23 Coding CPT Codes CPT Codes: ANESTH KNEE ARTHROPLASTY - 83060 ([id number]) P3 - PATIENT W/SEVERE SYS DISEASE, QK - LONG CHAIN BEAMER 2-4 CNCRNT ANES PROC, QX - CRANE HOIST OR LIFT OPERATOR SVC W/ MD MED DIRECTION
--- NOTE | 2024-12-20 13:54 | CRLHL7_ITS ---
For Patients: As a result of the Cures Act, medical imaging exams and procedure reports are released immediately into your electronic medical record. You may view this report before your referring provider. If you have questions, please contact your health care provider. INDICATION: Left total knee arthroplasty TECHNIQUE: Knee radiograph 2 views left COMPARISON: 12/10/2023 FINDINGS: Bone: No acute fractures or aggressive bone lesions are identified. Joint: The patient is status post a total knee arthroplasty with patellar resurfacing. No significant knee effusion is seen. Soft tissue: Anterior subcutaneous gas and joint gas are present from recent surgery. No radiopaque foreign bodies are seen. IMPRESSION: There is an unremarkable postoperative appearance of the knee arthroplasty. Dictated by: Haja Miramontes MD @ 12/24/2024 14:56:01 (Electronically Signed)
[2024-12-20] MEDS: LACTATED RINGERS 1000 ML 1,000 ML 75 ML IV (14:18)
--- NOTE | 2024-12-20 14:25 | P.ANES_ITS ---
Anesthesia Charges Start Date/Time Anesthesia Start Date: 12/20/24 Anesthesia Start Time: 10:33 Stop Date/Time Anesthesia Stop Date: 12/20/24 Anesthesia Stop Time: 14:23 Coding CPT Codes CPT Codes: ANESTH KNEE ARTHROPLASTY - 71179 ([id number]) P3 - PATIENT W/SEVERE SYS DISEASE, QK - SEISMIC OBSERVER 2-4 CNCRNT ANES PROC, QX - HOT CAR CHARGER SVC W/ MD MED DIRECTION
--- NOTE | 2024-12-20 14:25 | W.ANESCHARGE ---
Anesthesia Charges Start Date/Time Anesthesia Start Date: 12/20/24 Anesthesia Start Time: 10:33 Stop Date/Time Anesthesia Stop Date: 12/20/24 Anesthesia Stop Time: 14:23 Coding CPT Codes CPT Codes: ANESTH KNEE ARTHROPLASTY - 13799 ([id number]) P3 - PATIENT W/SEVERE SYS DISEASE, QK - SHINGLER 2-4 CNCRNT ANES PROC, QX - STORE CUSTODIAN SVC W/ MD MED DIRECTION
--- NOTE | 2024-12-20 16:16 | PM.IMCN1 ---
Date of Consult Patient: [facility] Patient Consult date: 12/20/24 Requesting Physician: Orthopedics Primary Care Provider: Altaf Hill MD Consult Narrative Reason for consult: Postoperative management of hypertension, hyperlipidemia, LEANNE Narrative: Sree Pisano is a 64 year old man undergoes elective left total knee arthroplasty today, 12/20/2024, under spinal anesthesia at [place], [place] with Dr. Lowery. No apparent complications. Estimated blood loss intraoperatively is 300 mL. Postoperatively doing well. Able to move toes on affected left lower extremity. Review of Systems Status of ROS: Reports: 6 or more systems reviewed and unremarkable except as noted in History and below Narrative: Denies orthostasis, syncope, nausea, vomiting, palpitations, chest heaviness, pressure, tightness, pain, dyspnea at rest, paroxysmal nocturnal dyspnea, orthopnea. Has been doing well up until hospitalization. Adheres to his medication regimen and other interventions as prescribed including using his home BiPAP machine when he sleeps every night and compression stockings. No recent febrile illness. No fevers, rigors, diaphoresis. No unusual travel outside of his norm. 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 [facility] Medical History Sleep apnea in adult ?G47.30 - Sleep apnea, unspecified (ICD-10) Hypertriglyceridemia ?E78.1 - Pure hyperglyceridemia (ICD-10) Hypertension ?I10 - Essential (primary) hypertension (ICD-10) Diabetes ?E11.9 - Type 2 diabetes mellitus without complications (ICD-10) Knee pain, bilateral ?M25.561 - Pain in right knee (ICD-10) ?M25.562 - Pain in left knee (ICD-10) Pulmonary nodule less than 1 cm in diameter with moderate to high risk for malignant neoplasm ?R91.1 - Solitary pulmonary nodule (ICD-10) ?Z91.89 - Other specified personal risk factors, not elsewhere classified (ICD-10) Central retinal artery occlusion of right eye ?H34.11 - Central retinal artery occlusion, right eye (ICD-10) Gout ?M10.9 - Gout, unspecified (ICD-10) Anemia ?D64.9 - Anemia, unspecified (ICD-10) Erectile dysfunction ?N52.9 - Male erectile dysfunction, unspecified (ICD-10) Obesity ?E66.9 - Obesity, unspecified (ICD-10) Prediabetes ?R73.03 - Prediabetes (ICD-10) Leg edema ?R60.0 - Localized edema (ICD-10) Surgical History History of colonoscopy ?Z98.890 - Other specified postprocedural states (ICD-10) Family History Father High blood pressure High cholesterol Prostate cancer Mother High blood pressure High cholesterol Social History Narrative: 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 Former smoker, smoked 30 years What is your current living situation?: I presently have a place to live Problems where you live: no known problems In the past 12 months, utilities in danger of being shut off: no In past 12 months, lack of transportation kept you from medical appts, meetings, work, or getting things needed for daily living: no In the past 12 mos, have been you worried that your food would run out before you had money to buy more?: never true In the past 12 mos, the food you bought just didn't last and you didn't have money to buy more?: never true Smoking Status: Never smoker Do you use any of these nicotine containing products: None How often do you have a drink containing alcohol: 2-3 times a week AUDIT-C Alcohol total score: 3 Non-prescribed substance use: marijuana (any form) Non-prescribed substance use details: occ. Caffeine: Yes How often does anyone, including family, friends and others, physically hurt you: never How often does anyone, including family, friends and others, insult or talk down to you: never How often does anyone, including family, friends and others, threaten you with harm: never How often does anyone, including family, friends and others, scream or curse at you: never Meds Home Medications and Allergies Home Medications ?Medication ?Instructions ?Recorded ?Confirmed ?Type coenzyme Q10 100 mg capsule 100 mg PO DAILY 11/06/21 12/20/24 History Held on 12/20/24. Instructions: Resume on 01/19/25. Resume after completing the 30-day course of aspirin 81 mg orally twice daily prescribed by your orthopedic surgeon. comp.stocking,thigh,long,x-lrg See Rx Instructions miscellaneous 11/06/21 12/20/24 Rx .COMPLEX #12 ea cholecalciferol (vitamin D3) 125 125 mcg PO DAILY 02/05/22 12/20/24 History mcg (5,000 unit) capsule sildenafil 25 mg tablet 25 - 100 mg (1 - 4 x 25 mg) PO 12/22/22 12/20/24 Rx QDAY PRN sexual activity #30 tabs aspirin 81 mg tablet,delayed 81 mg PO DAILY 07/09/23 12/20/24 History release (Adult Aspirin Regimen) Held on 12/20/24. Instructions: Resume on 01/19/25. resume aspirin 81 mg orally once daily after completing 30-day course of aspirin 81 mg orally twice daily per your orthopedic surgeon. icosapent ethyl 1 gram capsule 2 g PO BIDWM 12/10/23 12/20/24 History amlodipine 5 mg tablet 5 mg PO DAILY #90 tabs 08/08/24 12/20/24 Rx furosemide 20 mg tablet 40 mg (2 x 20 mg) PO DAILY #180 08/08/24 12/20/24 Rx tabs losartan 100 1 tab PO DAILY #90 tabs 08/08/24 12/20/24 Rx mg-hydrochlorothiazide 25 mg tablet metoprolol succinate 50 mg 50 mg PO DAILY #90 tabs 08/08/24 12/20/24 Rx tablet,extended release 24 hr rosuvastatin 40 mg tablet 40 mg PO DAILY #90 tabs 08/08/24 12/20/24 Rx potassium chloride 20 mEq 20 - 40 meq (1 - 2 x 20 mEq) PO 12/04/24 12/20/24 Rx tablet,extended release BID #270 tabs fenofibrate 54 mg tablet 54 mg PO DAILY 12/20/24 12/20/24 History Allergies Allergy/AdvReac Type Severity Reaction Status Date / Time Penicillins Allergy childhood Verified 12/04/24 13:27 reaction Exam Narrative: Exam Narrative: Examined patient in his hospital room. Appears comfortable no acute distress. Vision and hearing are adequate. Alert and oriented x4. Lungs are clear to auscultation. Heart tones with regular rhythm. Abdomen with active bowel sounds, soft. Moves all 4 extremities. Neck is supple. No JVD hepatojugular reflux. Does have a full neck. Const: Vital Signs, click to edit/add: Vital Signs - 24 hr 12/20/24 09:55 12/20/24 10:00 12/20/24 10:05 Temperature 97.2 F L Pulse Rate 71 73 63 Respiratory Rate 16 16 16 Blood Pressure 183/123 H 179/106 H 157/99 H Pulse Oximetry 97 98 96 Oxygen Delivery Me thod Room Air Nasal Cannula Room Air Oxygen Flow Rate 3 12/20/24 10:10 12/20/24 10:15 12/20/24 14:23 Temperature 97.1 F L Pulse Rate 59 L 59 L 78 Respiratory Rate 16 16 16 Blood Pressure 157/99 H 146/93 H 132/91 H Pulse Oximetry 95 96 96 Oxygen Delivery Me thod Room Air Room Air Room Air Oxygen Flow Rate 12/20/24 14:25 12/20/24 14:30 12/20/24 14:35 Temperature Pulse Rate 69 68 69 Respiratory Rate 13 14 15 Blood Pressure 143/90 H 141/96 H 154/99 H Pulse Oximetry 96 98 93 Oxygen Delivery Me thod Oxygen Flow Rate 12/20/24 14:40 12/20/24 14:45 12/20/24 14:50 Temperature 97.0 F L Pulse Rate 65 70 71 Respiratory Rate 19 13 16 Blood Pressure 134/90 H 150/105 H 161/100 H Pulse Oximetry 95 95 94 Oxygen Delivery Me thod Oxygen Flow Rate Assessment and Plan Assessment and plan (1) Bilateral primary osteoarthritis of knee: Status: Acute (2) Status post left knee replacement: Problem comment: 12/20/2024 at [facility] with Dr. Lowery Status: Acute (3) Hypertension: Problem comment: 5 drug regimen for blood pressure control: Amlodipine, losartan, hydrochlorothiazide, metoprolol, furosemide. Continue with medication administration while in hospital for blood pressure control Status: Acute (4) Diabetes: Problem comment: Sliding scale insulin while in hospital Status: Acute (5) Obesity: Status: Acute (6) Sleep apnea in adult: Problem comment: Continue with home BiPAP while in hospital Status: Acute (7) Hypertriglyceridemia: Problem comment: Continue with his statin while in hospital Status: Acute (8) Central retinal artery occlusion of right eye: Status: Acute Plan 1. I reviewed my impression, plans, recommendations with patient and 2. Answered their questions to their satisfaction 3. Hospitalists will be available to support patient needs while he is in hospital per Orthopedic surgery postop 4. Completed hospitalist portion of discharge orders from hospital 5. Patient agreeable with above stated plans and recommendations Total Time Spent Total Time Spent: 50 minute
[2024-12-20] MEDS: CEFAZOLIN 3 GM in 0.9 % SODIUM CHLORIDE Mini-bag 100 ML IVPB (17:33)
[2024-12-20] MEDS: POTASSIUM CHLORIDE 10 MEQ CAPSULE ER 20 MEQ PO (17:37)
--- NOTE | 2024-12-20 19:39 | PC.NURSE ---
end of shift. pt has been very pleasant., he is alert x4. he is funny. left knee pain 2-6, he got po pain meds with some relief but he got better relief getting up to the chair. alarms are on. he is eating, drinking and voiding. left knee has a shankar wrap on. dressing was C/D/I./ IV is patent. IS to 2500. he is up with 2 assist.
[2024-12-20] MEDS: ASPIRIN 81 MG TABLET EC PO (21:49)
[2024-12-20] MEDS: SENNOSIDES 1 TAB TABLET 2 TAB PO (21:49)
[2024-12-21] MEDS: CEFAZOLIN 3 GM in 0.9 % SODIUM CHLORIDE Mini-bag 100 ML IVPB (01:37)
[2024-12-21] MEDS: ACETAMINOPHEN 500 MG TABLET 1000 MG PO ×2 (05:23→10:31)
[2024-12-21 06:44] LABS: Hematocrit 37.1 % (37.0-53.0); Hemoglobin* 12.3 gm/dL (13.5-17.5); Mean Corpuscular HGB Conc 33 gm/dL (32-36); Mean Corpuscular Hemoglobin 29 pg (26-34); Mean Corpuscular Volume 88 fL (80-100); Red Blood Count 4.20 m/uL (4.30-5.90); White Blood Count* 8.97 K/uL (4.50-11.00)
[2024-12-21 06:46] LABS: Slide Review Reflex No
--- NOTE | 2024-12-21 06:55 | PM.ORPN ---
Subjective Subjective Time Seen by Provider: 06:30 Date Seen: 12/21/24 Principal diagnosis: Day 1 s/p left total knee arthroplasty (DOS: 12/20/24, Dr. Lowery) Interval history: Sree is doing well this morning and is resting comfortably in bed. He c/o moderate left knee pain (mostly posterior) that is well managed with rest, ice, acetaminophen and oxycodone PRN. Denies: fever, chills, chest pain, SOB, nausea, vomiting, numbness and tingling distally. Patient denies a bowel movement postoperatively, but admits to flatulence. Patient feels ready to be discharged to home later today. No acute events over night. Ortho Exam Narrative Exam Narrative: Incision/Dressing: Dressing appears clean and dry. No drainage present. Mepilex intact. Left knee appears moderately swollen but supple with no obvious erythema, fluctuance or excessive warmth. No ecchymosis or erythematous streaking. Warmth around the wound is appropriate. Ice is being utilized as needed. Porfirio wrap in place. CMS: Intact distally with 2+ Dorsalis pedis and Posterior Tibial pulses. Confirmed sensation distally. Calf: Bilateral calves are supple, with no swelling, pain, tenderness, erythema, discoloration or coolness to the touch. Constitutional: Patient is alert and oriented x3. Patient is in no acute distress and converses without labored breathing. Patient is able to make decisions and demonstrates good insight. Patient is pleasant and cooperative. Affect is full range and appropriate for the circumstances. Const Vital Signs, click to edit/add: Vital Signs - 24 hr 12/20/24 09:55 12/20/24 10:00 12/20/24 10:05 Temperature 97.2 F L Pulse Rate 71 73 63 Pulse Rate [Right Pulse Oximeter] Respiratory Rate 16 16 16 Blood Pressure 183/123 H 179/106 H 157/99 H Blood Pressure [Left Arm] Pulse Oximetry 97 98 96 Oxygen Delivery Method Room Air Nasal Cannula Room Air Oxygen Flow Rate 3 12/20/24 10:10 12/20/24 10:15 12/20/24 14:23 Temperature 97.1 F L Pulse Rate 59 L 59 L 78 Pulse Rate [Right Pulse Oximeter] Respiratory Rate 16 16 16 Blood Pressure 157/99 H 146/93 H 132/91 H Blood Pressure [Left Arm] Pulse Oximetry 95 96 96 Oxygen Delivery Method Room Air Room Air Room Air Oxygen Flow Rate 12/20/24 14:25 12/20/24 14:30 12/20/24 14:35 Temperature Pulse Rate 69 68 69 Pulse Rate [Right Pulse Oximeter] Respiratory Rate 13 14 15 Blood Pressure 143/90 H 141/96 H 154/99 H Blood Pressure [Left Arm] Pulse Oximetry 96 98 93 Oxygen Delivery Method Oxygen Flow Rate 12/20/24 14:40 12/20/24 14:45 12/20/24 14:50 Temperature 97.0 F L Pulse Rate 65 70 71 Pulse Rate [Right Pulse Oximeter] Respiratory Rate 19 13 16 Blood Pressure 134/90 H 150/105 H 161/100 H Blood Pressure [Left Arm] Pulse Oximetry 95 95 94 Oxygen Delivery Method Oxygen Flow Rate 12/20/24 15:00 12/20/24 15:15 12/20/24 15:30 Temperature 97.4 F L Pulse Rate Pulse Rate [Right Pulse Oximeter] 69 61 58 L Respiratory Rate 16 16 16 Blood Pressure Blood Pressure [Left Arm] 158/98 H 160/103 H 154/104 H Pulse Oximetry 93 92 92 Oxygen Delivery Method Room Air Room Air Room Air Oxygen Flow Rate 12/20/24 15:45 12/20/24 16:00 12/20/24 17:00 Temperature 97.4 F L Pulse Rate Pulse Rate [Right Pulse Oximeter] 66 55 L 67 Respiratory Rate 16 16 16 Blood Pressure Blood Pressure [Left Arm] 142/87 H 157/46 H 142/91 H Pulse Oximetry 96 96 95 Oxygen Delivery Method Room Air Room Air Room Air Oxygen Flow Rate 12/20/24 18:00 12/20/24 19:00 12/20/24 23:00 Temperature Pulse Rate Pulse Rate [Right Pulse Oximeter] 61 71 Respiratory Rate 18 16 18 Blood Pressure Blood Pressure [Left Arm] 153/93 H 141/78 H Pulse Oximetry 94 97 96 Oxygen Delivery Method Room Air Room Air Room Air Oxygen Flow Rate 12/20/24 23:00 Temperature 97.9 F Pulse Rate Pulse Rate [Right Pulse Oximeter] 69 Respiratory Rate 18 Blood Pressure Blood Pressure [Left Arm] 131/79 Pulse Oximetry 96 Oxygen Delivery Method Room Air Oxygen Flow Rate Assessment and Plan Assessment and plan (1) Status post left knee replacement: Problem details: 12/20/2024 at [facility] with Dr. Lowery Status: Acute Assessment and Plan: - Complete 23 hour perioperative antibiotics. - PT/OT consults for education and assistance. - Patient has outpatient Physical Therapy scheduled to begin tomorrow (12/22/24). - Weight bear as tolerated with a walker for assistance. - Prescribed analgesics as needed. Patient is content with current narcotic medications. Minimize narcotic pain medication use; wean off and discontinue as soon as possible. - DVT prophylaxis: aspirin 81 mg BID x 35 days. Also, frequent ambulation and ankle pumps when sedentary. - Social consult for discharge planning. - Anticipate patient will be discharged to home later this morning if the patient remains medically stable, pain is controlled and is safe with ambulation. - Sree is scheduled to f/u with myself on 01/04/25. Mepilex dressing will be removed at this appointment. Remove sooner if dressing becomes saturated. - Return to clinic in [address] Lowery. - Phone Orthopedics with any questions or concerns. [phone]
[2024-12-21 06:58] LABS: Chloride* 104 mmol/L (96-114); Potassium* 3.8 mmol/L (3.6-5.1); Sodium* 137 mmol/L (135-149)
[2024-12-21 07:00] VITALS: BP 143/81; PULSE 76; RESP 18; TEMP 36.9; O2SAT 94
[2024-12-21 07:01] LABS: Anion Gap 8 mEq/L (7-15); Blood Urea Nitrogen* 31 mg/dL (7-30); Calcium* 8.9 mg/dL (8.4-10.6); Carbon Dioxide* 25 mmol/L (20-32); Creatinine* 0.9 mg/dL (0.5-1.5); Est. Creatinine Clearance* 73.15; Estimated Glomerular Filt Rate 96 ml/min; Glucose* 124 mg/dL (60-115)
[2024-12-21] MEDS: POTASSIUM CHLORIDE 10 MEQ CAPSULE ER 40 MEQ PO (08:39)
[2024-12-21] MEDS: LOSARTAN POTASSIUM 50 MG TABLET 100 MG PO (08:40)
[2024-12-21] MEDS: SENNOSIDES 1 TAB TABLET 2 TAB PO (08:40)
[2024-12-21] MEDS: ROSUVASTATIN CALCIUM 10 MG TABLET 40 MG PO (08:40)
[2024-12-21] MEDS: ASPIRIN 81 MG TABLET EC PO (08:40)
[2024-12-21] MEDS: METOPROLOL SUCCINATE (XL) 50 MG TAB PO (08:41)
[2024-12-21] MEDS: FUROSEMIDE 20 MG TABLET 40 MG PO (08:41)
[2024-12-21] MEDS: AMLODIPINE 5 MG TABLET PO (08:41)
[2024-12-21] MEDS: CELECOXIB 200 MG CAPSULE PO (08:41)
--- NOTE | 2024-12-21 11:29 | PC.NURSE ---
Discharge Note (258)? ? Patient was very pleasant and cooperative throughout shift. He was admitted for a LTKA (12/20). He moves well with walker and gait belt. Surgical dressing is intact and dry. Slight swelling on left?knee, and 2+ edema on right ankle. Lung sounds are clear bilaterally. Patient has follow up appointments scheduled. Medications and sign and symptoms reviewed. Patient was discharged at 11:14.?
== END 2024-12-21 11:14 | disposition home or self-care (01) ==
LOC: OR 08:45 → MEDSURG 08:46
PROVIDERS: Internal Medicine; PCP Family Medicine; Visit Provider Orthopaedic Surgery
PROC: (CPT 27447; principal; 2024-12-20 10:30)
DX: M17.12 Unilateral primary osteoarthritis, left knee (principal); G89.18 Other acute postprocedural pain; E11.9 Type 2 diabetes mellitus without complications; E66.9 Obesity, unspecified; I10 Essential (primary) hypertension; G47.33 Obstructive sleep apnea (adult) (pediatric); Z79.82 Long term (current) use of aspirin; H34.11 Central retinal artery occlusion, right eye; E78.1 Pure hyperglyceridemia; E78.5 Hyperlipidemia, unspecified; Z68.41 Body mass index [BMI] 40.0-44.9, adult
CPT/HCPCS: 27447; 01402; 36415; 64447; 64454; 73560; 76942; 80048; 83735; 84100; 85027; 97110; 97116; 97161; 97165; 97530; 97535; A9270; C1776; J0665; J0690; J1100; J2250; J2371; J2405; J2704; J3010; J3490; J7120

== ENCOUNTER 2025-02-27 09:00 | Outpatient (RCR) | payer BC, SELFPAY | END 2025-04-17 13:57 | disposition home or self-care (01) | PROVIDERS: PCP Family Medicine; Visit Provider Orthopaedic Surgery | DX: Z47.1 Aftercare following joint replacement surgery (principal); Z96.652 Presence of left artificial knee joint; Z51.89 Encounter for other specified aftercare | CPT/HCPCS: 97016; 97110; 97116; 97140; 97161 ==

== ENCOUNTER 2025-04-24 08:22 | Day surgery (SDC) | payer BC, SELFPAY ==
[2025-04-24] VITALS (23 sets, daily range): BP systolic 95–170; BP diastolic 60–106; PULSE 50–67; RESP 15–18; TEMP 36–37.3; O2SAT 91–97; BMI 44.7
--- NOTE | 2025-04-24 08:55 | P.ORPRC_ITS ---
Procedure Note Date of procedure: 04/24/25 Procedure: PREOPERATIVE DIAGNOSIS: 1. Right knee osteoarthritis POSTOPERATIVE DIAGNOSES: 1. Right knee osteoarthritis PROCEDURE: 1. Right total knee arthroplasty SURGEON: Sherwin Lowery MD METAL PAINTER: Swait Dalal An hospital aides and assistants teacher was critical for this case to aid in patient positioning, suture manipulation, limb positioning, instrument positioning, and wound closure. ANESTHESIA: Spinal with adductor canal each knee killer nerve blocks IMPLANTS: DePuy Attune femoral posterior stabilized component size 8; DePuy Attune tibial base rotating platform size 8; DePuy Attune tibial insert rotating platform posterior stabilized polyethylene size 8, 5 mm; and an Attune patella medialized dome size 38 mm. EBL: 250 ml TOURNIQUET TIME: 128 minutes at 275 mmHg COMPLICATIONS: None evident INDICATIONS: Sree is a 64-year-old male who has chronic right knee pain secondary to osteoarthritis. Symptoms have worsened despite non operative treatment. Patient is now interested in proceeding with right total knee arthroplasty for improved function, decreased pain and better quality of life. Prior to the procedure, risks and benefits of the operative and non operative treatment were discussed with patient. After discussion of risks, benefits, and alternatives of surgery, informed consent was obtained and the operative site was marked. FINDINGS: Moderate to severe tricompartmental osteoarthritis with eburnated bone in the medial and patellofemoral compartments and peripheral osteophyte formation off the medial femoral condyle, lateral femoral condyle, and tibial plateaus.. PROCEDURE: Patient was seen preoperatively and operative site was marked. Adductor canal and genicular nerve blocks were performed by anesthesia staff. Patient was then brought to the operating room, where spinal anesthesia was administered by the anesthesia staff. Patient was then placed into the supine position on the OR table and all bony prominences were well padded. 3 g IV Ancef was administered preoperatively for prophylaxis. A tourniquet was placed on the thigh of the operative leg. The right lower extremity was prepped and draped in usual sterile fashion. A surgical time-out was performed confirming patient identity, surgical procedure, and surgical site. Operative extremity was elevated and exsanguinated with an Esmarch and tourniquet was inflated to 275 mmHg. The tourniquet remained inflated for 127 minutes before it was deflated. An anterior longitudina midline skin incision was made starting approximately 4 cm proximal to the superior pole of the patella and advanced distal to the tibial tubercle. Incision was carried through subcutaneous tissues. The quadriceps tendon, medial patellar retinaculum, lateral patellar retinaculum, and patellar tendon were visualized. A subvastus approach was utilized to enter the joint. The proximal medial tibia was subperiosteal exposed distal to the joint line. The retropatellar fat pad was excised. A curved osteotome was used to enter the semimembranous bursa me dially at the level of the joint line. Attention was 1st directed to the patellar osteotomy. The patella was everted and osteochondral junction was exposed. ?The patella measured 27 mm in thickness . ?The patellar osteotomy was performed, leaving 16 mm of remnant patella. ?Three lug holes were drilled for the 38 mm patella button and the patella protector was applied. The knee was then flexed to 90?. Medial and lateral tibial plateau osteophytes were removed with a rongeur. The medial meniscus was excised at the meniscal synovial junction. The anterior cruciate ligament was excised. A partial lateral meniscectomy was performed. Large osteophytes were also removed from the medial and lateral femoral condyles. The intramedullary drill was utilized to open the intramedullary canal. ?I ntramedullary alignment guide was inserted. The distal femoral cutting block, set at 5 degrees of valgus with a distal femoral resection of 10 mm, was secured with pins, and the distal femoral osteotomy was performed. ?Using the posterior condylar referencing guide, femur was sized to a size 8, and pins were drilled for 3 degrees of external rotation, which corresponded with Whitesides line and the epicondylar axis. ?A 4-in-1 cutting jig was inserted at 3 degrees of external rotation. ?The anterior and posterior condylar cuts were performed followed by anterior and posterior chamfer cuts. The box cutting guide was then secured to the distal femur with pins and the box osteotomy was performed. ?A curved osteotome was then used to remove osteophytes from the posterior medial femoral condyle and posterior lateral femoral condyle. ? We then turned our attention back to the tibia. ?Ranasall maneuver was performed and remainder of the lateral meniscus, medial meniscus, and PCL were excised. ?A retractor was placed along the posterior tibia. ?Extramedullary guide was secured around the ankle in line with the subcutaneous tibial crest. ?The tibial cutting block, set to remove 2 mm of bone from medial tibial plateau and 9 mm of bone from lateral tibial plateau, was secured proximally with pins. ?Tibial osteotomy was performed with care taken to protect the collateral ligaments. ?Spacer blocks were inserted, and knee was noted be tight in flexion and extension. Tibia osteotomy was then recut removing additional 2 mm of bone. Spacer blocks were reinserted, and used to confirm symmetric flexion and extension gaps.?The tibia was then sized to a size 8, and tibial base plate was secured. Tibia was then prepped with the appropriate drill and punch. Trial femur and tibial components with a 5 mm tibial polyethylene component were inserted, as was a trial 38 mm patellar button. With trial components in place, the knee was brought through full range of motion and had symmetric flexion- extension gaps. ?Soft tissue tension, collateral ligament stability, and patella tracking were confirmed to be satisfactory. ?Trial components were then removed. ??After removing the trial components, a bone plug was placed in the distal femur. The exposed bony surfaces of the tibia, femur, and patella were then thoroughly irrigated with pulse lavage and dried. ? Cement was mixed on the back table and was subsequently introduced onto the tibia and tibial base plate. ?Tibial base plate was then impacted into position, and extruded cement was removed. ?Cement was then applied to the distal femur and posterior condyles of the femoral prosthesis. ?The femoral prosthesis was impacted into position, extruded cement was removed, and a trial polyethylene was inserted. ?Knee was then brought out to full extension for remainder of drying. ?Cement was then applied to the patella and patellar button. The patella button was clamped into position, and extruded cement was removed. ?While the cement was drying, knee was soaked in a sterile iodine solution. ? After the cement had dried, the knee was flexed and the trial tibial component was removed. The tourniquet was released . The soft tissues were then irrigated with pulse lavage and hemostasis was achieved with electrocautery. A formal size 8, 5 mm rotating platform posterior stabilized polyethylene was then secured into position. ? The parapatellar arthrotomy was closed with #1 Vicryl [id number] interrupted sutures followed by a running #1 Stratafix suture. ?Subcutaneous soft tissues were again irrigated normal saline. Skin was closed with 2-0 Vicryl inverted, interrupted, subcutaneous stitches followed by running 2-0 Stratafix and 3-0 Monocryl subcuticular stitches. ?The incision was then sealed with Dermabond and sterile dressing was applied. ?The patient was then transferred to the recovery room in stable condition. POSTOPERATIVE PLAN: 1. Patient will be admitted to the hospital overnight for observation, where he will follow the postoperative total knee arthroplasty protocol. 2. Mobilize with physical therapy and occupational therapy. -Weight bear as tolerated right lower extremity. 3. Pain control: -Acetaminophen and Oxycodone for pain as needed. -IV pain medications for breakthrough pain. -Ice for pain and swelling. 4. Postoperative prophylactic antibiotics x2 doses 5. DVT prophylaxis: -aspirin 81 mg b.i.d. for 35 days. -SCDs bilateral lower extremities. 6. Follow-up in Orthopedic Clinic in 1-2 weeks.
--- NOTE | 2025-04-24 08:55 | W.PM.H&PU ---
History & Physical Update History & Physical Update H&P Reviewed and patient assessed: No changes noted
[2025-04-24] MEDS: CELECOXIB 200 MG CAPSULE PO (09:19)
[2025-04-24] MEDS: OXYCODONE (CR) 10 MG TAB.ER.12H PO (09:19)
[2025-04-24] MEDS: ACETAMINOPHEN 500 MG TABLET 1000 MG PO ×3 (09:19→21:05)
[2025-04-24] MEDS: MIDAZOLAM HCL 1 MG/ML inj IVP (09:20)
--- NOTE | 2025-04-24 09:28 | P.NB_ITS ---
Nerve Block Nerve Block Time Seen by Provider: 09:25 Date Seen: 04/24/25 Type of block requested by surgeon for post-operative analgesia: adductor canal Side: right Time out performed: Yes Verification of patient name: Yes Verification of date of : Yes Site marking: site marked Name of person performing procedure: Luis Enrique Continuous monitoring Was continuous monitoring of O2 sat, B/P, alarm security or surveillance monitor, recorded every 15 minutes?: Yes Procedure Checklist: sterile prep, needles and gloves Ultrasound guided. Images saved: Yes Medications given in 5ml increments after negative aspiration: Marcaine %: 0.25 mL: 15 Needle gauge: 20 Precedex (mcg): 25 Patient tolerated procedure well: Yes Block Charges Block Charge (with Pro Fee): Femoral Nerve Use of Ultrasound Machine for Block: Yes- US Guidance/pain block
--- NOTE | 2025-04-24 09:29 | P.NB_ITS ---
Nerve Block Nerve Block Time Seen by Provider: 09:25 Date Seen: 04/24/25 Type of block requested by surgeon for post-operative analgesia: geniculars Side: right Time out performed: Yes Verification of patient name: Yes Verification of date of : Yes Site marking: site marked Name of person performing procedure: Luis Enrique Continuous monitoring Was continuous monitoring of O2 sat, B/P, director mobile, recorded every 15 minutes?: Yes Procedure Checklist: sterile prep, needles and gloves Ultrasound guided. Images saved: Yes Medications given in 5ml increments after negative aspiration: Marcaine %: 0.25 mL: 9 Needle gauge: 25 Patient tolerated procedure well: Yes Block Charges Block Charge (with Pro Fee): Genicular Nerve Block
--- NOTE | 2025-04-24 09:29 | P.ANES_ITS ---
Anesthesia Charges Start Date/Time Anesthesia Start Date: 04/24/25 Anesthesia Start Time: 10:19 Stop Date/Time Anesthesia Stop Date: 04/24/25 Anesthesia Stop Time: 14:03 Coding CPT Codes CPT Codes: ANESTH KNEE ARTHROPLASTY - 58525 ([id number]) P3 - PATIENT W/SEVERE SYS DISEASE, QK - MEDICAL STAFF MANAGER 2-4 CNCRNT ANES PROC, QX - SALESPERSON WOMEN'S HATS SVC W/ MD MED DIRECTION
--- NOTE | 2025-04-24 09:29 | W.ANESCHARGE ---
Anesthesia Charges Start Date/Time Anesthesia Start Date: 04/24/25 Anesthesia Start Time: 10:19 Stop Date/Time Anesthesia Stop Date: 04/24/25 Anesthesia Stop Time: 14:03 Coding CPT Codes CPT Codes: ANESTH KNEE ARTHROPLASTY - 45260 ([id number]) P3 - PATIENT W/SEVERE SYS DISEASE, QK - STATISTICAL FINANCIAL ANALYST 2-4 CNCRNT ANES PROC, QX - TEAM PHYSICIAN SVC W/ MD MED DIRECTION
--- NOTE | 2025-04-24 09:40 | SUR.PREOP ---
TIME?OUT:?18 PT/RN/MDA?VERIFICATION?OF?SURGICAL?SITE,?PROCEDURE,?AND?CONSENT OBTAINED?PRIOR?TO?INVASIVE?PROCEDURE.
[2025-04-24] MEDS: LACTATED RINGERS 1000 ML 1,000 ML 100 ML IV ×2 (09:45→11:55)
[2025-04-24] MEDS: SODIUM CHLORIDE 0.9 % (FLUSH) 10 ML SYRINGE IVF (09:48)
[2025-04-24] MEDS: TRANEXAMIC ACID 100 MG/ML INJ 1000 MG IV (10:40)
--- NOTE | 2025-04-24 13:34 | CRLHL7_ITS ---
For Patients: As a result of the Cures Act, medical imaging exams and procedure reports are released immediately into your electronic medical record. You may view this report before your referring provider. If you have questions, please contact your health care provider. INDICATION: Right total knee arthroplasty TECHNIQUE: Knee radiograph 2 views right COMPARISON: 12/10/2023 FINDINGS: Bone: No acute fractures or aggressive bone lesions are identified. Joint: The patient is status post a total knee arthroplasty with patellar resurfacing. No significant knee effusion is seen. Soft tissue: Anterior skin, subcutaneous gas and joint gas are present from recent surgery. No radiopaque foreign bodies are seen. IMPRESSION: 1. There is an unremarkable postoperative appearance of the knee arthroplasty. Dictated by: Haja Miramontes MD @ 04/26/2025 08:00:15 (Electronically Signed)
--- NOTE | 2025-04-24 14:09 | P.ANES_ITS ---
Anesthesia Charges Start Date/Time Anesthesia Start Date: 04/24/25 Anesthesia Start Time: 10:19 Stop Date/Time Anesthesia Stop Date: 04/24/25 Anesthesia Stop Time: 14:03 Coding CPT Codes CPT Codes: ANESTH KNEE ARTHROPLASTY - 33426 ([id number]) P3 - PATIENT W/SEVERE SYS DISEASE, QK - HRIS DEVELOPER 2-4 CNCRNT ANES PROC, QX - INFECTIOUS DISEASE TECHNICIAN SVC W/ MD MED DIRECTION
--- NOTE | 2025-04-24 14:09 | W.ANESCHARGE ---
Anesthesia Charges Start Date/Time Anesthesia Start Date: 04/24/25 Anesthesia Start Time: 10:19 Stop Date/Time Anesthesia Stop Date: 04/24/25 Anesthesia Stop Time: 14:03 Coding CPT Codes CPT Codes: ANESTH KNEE ARTHROPLASTY - 70966 ([id number]) P3 - PATIENT W/SEVERE SYS DISEASE, QK - PULLEY WORKER 2-4 CNCRNT ANES PROC, QX - ANNEALING OVEN OPERATOR SVC W/ MD MED DIRECTION
[2025-04-24] MEDS: LACTATED RINGERS 1000 ML 1,000 ML 75 ML IV (15:05)
[2025-04-24] MEDS: CEFAZOLIN 3 GM in 0.9 % SODIUM CHLORIDE Mini-bag 100 ML IVPB (17:03)
--- NOTE | 2025-04-24 17:10 | PM.IMCN1 ---
Date of Consult Patient: [facility] Patient Consult date: 04/24/25 Requesting Physician: Orthopedics Primary Care Provider: Altaf Hill MD Consult Narrative Narrative: Sree Pisano is a 64 year old male with a history of hypertension, hypertriglyceridemia, obstructive sleep apnea, diet controlled diabetes mellitus type 2, gout, he in a pulmonary nodule underwent an elective right total knee arthroplasty for primary osteoarthritis. He is doing very well postoperatively. He tells me that his pain is good right now after having received oral pain medications just a little bit ago. He denies any other concerns. Denies chest pain or shortness of breath. He brought his home BiPAP and is intending to use that tonight for obstructive sleep apnea. I counseled the patient to also use that during naps. Review of Systems Status of ROS: Reports: 10 or more systems reviewed and unremarkable except as noted in History and below [facility] Medical History (Updated 04/24/25 @ 18:55 by Keke Mckeon MD) Primary osteoarthritis of right knee ?M17.11 - Unilateral primary osteoarthritis, right knee (ICD-10) Sleep apnea in adult ?G47.30 - Sleep apnea, unspecified (ICD-10) Hypertriglyceridemia ?E78.1 - Pure hyperglyceridemia (ICD-10) Hypertension ?I10 - Essential (primary) hypertension (ICD-10) Diabetes ?E11.9 - Type 2 diabetes mellitus without complications (ICD-10) Knee pain, bilateral ?M25.561 - Pain in right knee (ICD-10) ?M25.562 - Pain in left knee (ICD-10) Pulmonary nodule less than 1 cm in diameter with moderate to high risk for malignant neoplasm ?R91.1 - Solitary pulmonary nodule (ICD-10) ?Z91.89 - Other specified personal risk factors, not elsewhere classified (ICD-10) Central retinal artery occlusion of right eye ?H34.11 - Central retinal artery occlusion, right eye (ICD-10) Gout ?M10.9 - Gout, unspecified (ICD-10) Anemia ?D64.9 - Anemia, unspecified (ICD-10) Erectile dysfunction ?N52.9 - Male erectile dysfunction, unspecified (ICD-10) Obesity ?E66.9 - Obesity, unspecified (ICD-10) Prediabetes ?R73.03 - Prediabetes (ICD-10) Leg edema ?R60.0 - Localized edema (ICD-10) Surgical History (Updated 04/24/25 @ 18:53 by Keke Mckeon MD) Status post total knee replacement, right ?Z96.651 - Presence of right artificial knee joint (ICD-10) Status post left knee replacement ?Z96.652 - Presence of left artificial knee joint (ICD-10) Status post total knee replacement, left ?Z96.652 - Presence of left artificial knee joint (ICD-10) History of colonoscopy ?Z98.890 - Other specified postprocedural states (ICD-10) Family History Father High blood pressure High cholesterol Prostate cancer Mother High blood pressure High cholesterol Social History Narrative: 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 Former smoker, smoked 30 years What is your current living situation?: I presently have a place to live Problems where you live: no known problems In the past 12 months, utilities in danger of being shut off: no In past 12 months, lack of transportation kept you from medical appts, meetings, work, or getting things needed for daily living: no In the past 12 mos, have been you worried that your food would run out before you had money to buy more?: never true In the past 12 mos, the food you bought just didn't last and you didn't have money to buy more?: never true Highest level of school completed/degree received: some college, no degree Smoking Status: Never smoker Do you use any of these nicotine containing products: None Second hand tobacco smoke exposure: No How often do you have a drink containing alcohol: 2-3 times a week Alcohol type: beer and hard liquor How many standard drinks containing alcohol do you have on a typical day: 3 or 4 How often do you have six or more drinks on one occasion: Never AUDIT-C Alcohol total score: 4 Non-prescribed substance use: marijuana (any form) Non-prescribed substance use details: gummidevin last used December 2024 Caffeine: Yes How often does anyone, including family, friends and others, physically hurt you: never How often does anyone, including family, friends and others, insult or talk down to you: never How often does anyone, including family, friends and others, threaten you with harm: never How often does anyone, including family, friends and others, scream or curse at you: never service: No Meds Home Medications and Allergies Home Medications ?Medication ?Instructions ?Recorded ?Confirmed ?Type coenzyme Q10 100 mg capsule 100 mg PO DAILY 11/06/21 04/24/25 History comp.stocking,thigh,long,x-lrg See Rx Instructions miscellaneous 11/06/21 04/24/25 Rx .COMPLEX #12 ea cholecalciferol (vitamin D3) 125 125 mcg PO DAILY 02/05/22 04/24/25 History mcg (5,000 unit) capsule sildenafil 25 mg tablet 25 - 100 mg (1 - 4 x 25 mg) PO 12/22/22 04/24/25 Rx QDAY PRN sexual activity #30 tabs icosapent ethyl 1 gram capsule 2 g PO BIDWM 12/10/23 04/24/25 History amlodipine 5 mg tablet 5 mg PO DAILY #90 tabs 08/08/24 04/24/25 Rx furosemide 20 mg tablet 40 mg (2 x 20 mg) PO DAILY #180 08/08/24 04/24/25 Rx tabs losartan 100 1 tab PO DAILY #90 tabs 08/08/24 04/24/25 Rx mg-hydrochlorothiazide 25 mg tablet metoprolol succinate 50 mg 50 mg PO DAILY #90 tabs 08/08/24 04/24/25 Rx tablet,extended release 24 hr rosuvastatin 40 mg tablet 40 mg PO DAILY #90 tabs 08/08/24 04/24/25 Rx potassium chloride 20 mEq 20 - 40 meq (1 - 2 x 20 mEq) PO 12/04/24 04/24/25 Rx tablet,extended release BID #270 tabs fenofibrate 54 mg tablet 54 mg PO DAILY 12/20/24 04/24/25 History aspirin 81 mg tablet 81 mg PO BID 35 days #70 tabs 04/23/25 04/24/25 Rx acetaminophen 500 mg tablet 500 - 1,000 mg (1 - 2 x 500 mg) PO 04/24/25 04/24/25 Rx Q6H PRN pain #100 tabs Allergies Allergy/AdvReac Type Severity Reaction Status Date / Time Penicillins Allergy childhood Verified 04/24/25 08:40 reaction Exam Narrative: Exam Narrative: General: No acute distress. Awake alert oriented x3. Morbidly obese. HEENT: Normocephalic atraumatic, pupils equally round and reactive to light and accommodation. Oropharynx clear. Mucous membranes are moist. No cervical lymphadenopathy, thyromegaly or carotid bruits. No JVD. Cardiovascular: Regular rate and rhythm. No murmurs, gallops, or rubs. Chest: No increased work of breathing. Clear to auscultation bilaterally. No crackles or wheezes. Abdomen: Bowel sounds present. Soft, nondistended, nontender. No hepatosplenomegaly or masses. Extremities: Right knee bandage is clean, dry, and intact. No edema, no cyanosis or clubbing. Skin: No jaundice, no pallor, no rashes on visible skin. Const: Vital Signs, click to edit/add: Vital Signs - 24 hr 04/24/25 09:04 04/24/25 09:20 04/24/25 14:01 Temperature 99.1 F 97.8 F Pulse Rate 65 67 64 Pulse Rate [Right Pulse Oximeter] Respiratory Rate 16 16 16 Blood Pressure 170/105 H 164/106 H 105/75 Blood Pressure [Ri ght Arm] Pulse Oximetry 97 95 92 Oxygen Delivery Me thod Room Air Nasal Cannula Room Air Oxygen Flow Rate 2 04/24/25 14:05 04/24/25 14:10 04/24/25 14:15 Temperature Pulse Rate 64 60 60 Pulse Rate [Right Pulse Oximeter] Respiratory Rate 16 16 16 Blood Pressure 111/70 102/67 95/60 Blood Pressure [Ri ght Arm] Pulse Oximetry 92 92 92 Oxygen Delivery Me thod Oxygen Flow Rate 04/24/25 14:20 04/24/25 14:25 04/24/25 14:30 Temperature 97.6 F Pulse Rate 53 L 53 L 55 L Pulse Rate [Right Pulse Oximeter] Respiratory Rate 16 16 16 Blood Pressure 105/67 103/71 106/68 Blood Pressure [Ri ght Arm] Pulse Oximetry 94 93 93 Oxygen Delivery Me thod Room Air Oxygen Flow Rate 04/24/25 14:39 04/24/25 14:54 04/24/25 15:00 Temperature 96.8 F L 96.8 F L Pulse Rate Pulse Rate [Right Pulse Oximeter] 50 L 50 L Respiratory Rate 15 16 16 Blood Pressure Blood Pressure [Ri ght Arm] 102/69 101/73 Pulse Oximetry 93 96 94 Oxygen Delivery Me thod Room Air Room Air Room Air Oxygen Flow Rate 04/24/25 15:09 04/24/25 15:39 Temperature 96.8 F L 96.8 F L Pulse Rate Pulse Rate [Right Pulse Oximeter] 51 L 54 L Respiratory Rate 16 16 Blood Pressure Blood Pressure [Ri ght Arm] 132/89 129/73 Pulse Oximetry 96 94 Oxygen Delivery Me thod Room Air Room Air Oxygen Flow Rate 2 Assessment and Plan Assessment and plan (1) Status post total knee replacement, right: Problem comment: 04/24/25 Dr. Lowery - routine postop cares - continue current pain regimen - VTE prophylaxis with twice a day low-dose aspirin Status: Acute (2) Bilateral primary osteoarthritis of knee: Problem comment: - left total knee arthroplasty in December and right total knee arthroplasty today Status: Chronic (3) Diabetes: Problem comment: - 04/02/25 Hgb A1c 5.5% - diet controlled Status: Acute (4) Obesity: Status: Chronic (5) Sleep apnea in adult: Problem comment: Continue home BiPAP while in hospital Status: Chronic (6) Hypertriglyceridemia: Problem comment: Continue with his statin and fenofibrate while in hospital Status: Chronic (7) Hypertension: Problem comment: 5 drug regimen for blood pressure control: Amlodipine, losartan, hydrochlorothiazide, metoprolol, furosemide. Blood pressures are low normal to normal today, continue metoprolol and furosemide, hold losartan hydrochlorothiazide and amlodipine for now, restart tomorrow morning if blood pressure elevated by morning, otherwise restart upon discharge home tomorrow Status: Acute
[2025-04-24] MEDS: ASPIRIN 81 MG TABLET EC PO (21:04)
[2025-04-24] MEDS: SENNOSIDES 1 TAB TABLET 2 TAB PO (21:05)
[2025-04-24] MEDS: POTASSIUM CHLORIDE 10 MEQ CAPSULE ER 20 MEQ PO (21:05)
--- NOTE | 2025-04-24 22:09 | PC.NURSE ---
Patient ambulating with assist of one, gait belt, and walker. Dressing to right knee clean, dry, and intact. Patient tolerating a regular diet. Patient utilizing scheduled and prn medications for pain as well as active ice. Patients vital signs stable, patient using his home bipap. PIV in Left hand patent.
[2025-04-25] MEDS: CEFAZOLIN 3 GM in 0.9 % SODIUM CHLORIDE Mini-bag 100 ML IVPB (01:45)
[2025-04-25 03:00] VITALS: BP 125/79; PULSE 72; RESP 18; TEMP 36.6; O2SAT 93
[2025-04-25] MEDS: ACETAMINOPHEN 500 MG TABLET 1000 MG PO ×2 (03:48→09:25)
--- NOTE | 2025-04-25 06:48 | PC.NURSE ---
End of shift report [id number]:?VSS. Afebrile. R knee dressing is C/D/I,?CMS is intact. Ambulates SBA, GB, W. Denies nausea. Utilized home CPAP overnight. Rates pain?a 5/10, prn pain meds offered and?given with?relief. Pt is resting in bed, call light within reach.?
[2025-04-25 07:00] VITALS: BP 152/91; PULSE 73; RESP 16; TEMP 36.6; O2SAT 97
--- NOTE | 2025-04-25 08:20 | PM.ORPN ---
Subjective Subjective Time Seen by Provider: 08:10 Date Seen: 04/25/25 Principal diagnosis: Day 1 s/p right total knee arthroplasty (04/24/25, Dr. Lowery) Interval history: Sere is doing very well and resting comfortably in his recliner. His right knee pain is well managed with Oxycodone and Tylenol. Denies nausea, vomiting, chest pain, SOB, fever, chills. Denies bowel movement and flatulance postoperatively. Patient feels ready to be discharged to home later today. No acute events overnight. Ortho Exam Narrative Exam Narrative: Incision/Dressing: Dressing appears clean and dry. No drainage present. Mepilex intact. Right knee appears moderately swollen but supple with no obvious erythema, fluctuance or excessive warmth. No ecchymosis or erythematous streaking. Warmth around the wound is appropriate. Ice is being utilized as needed. CMS: Intact distally with 2+ Dorsalis pedis and Posterior Tibial pulses. Calf: Bilateral calves are supple, with no swelling, pain, tenderness, erythema, discoloration or coolness to the touch. Constitutional: Patient is alert and oriented x3. Patient is in no acute distress and converses without labored breathing. Patient is able to make decisions and demonstrates good insight. Patient is pleasant and cooperative. Affect is full range and appropriate for the circumstances. Const Vital Signs, click to edit/add: Vital Signs - 24 hr 04/24/25 09:04 04/24/25 09:20 04/24/25 14:01 Temperature 99.1 F 97.8 F Pulse Rate 65 67 64 Pulse Rate [Right Pulse Oximeter] Respiratory Rate 16 16 16 Blood Pressure 170/105 H 164/106 H 105/75 Blood Pressure [Right Arm] Pulse Oximetry 97 95 92 Oxygen Delivery Method Room Air Nasal Cannula Room Air Oxygen Flow Rate 2 04/24/25 14:05 04/24/25 14:10 04/24/25 14:15 Temperature Pulse Rate 64 60 60 Pulse Rate [Right Pulse Oximeter] Respiratory Rate 16 16 16 Blood Pressure 111/70 102/67 95/60 Blood Pressure [Right Arm] Pulse Oximetry 92 92 92 Oxygen Delivery Method Oxygen Flow Rate 04/24/25 14:20 04/24/25 14:25 04/24/25 14:30 Temperature 97.6 F Pulse Rate 53 L 53 L 55 L Pulse Rate [Right Pulse Oximeter] Respiratory Rate 16 16 16 Blood Pressure 105/67 103/71 106/68 Blood Pressure [Right Arm] Pulse Oximetry 94 93 93 Oxygen Delivery Method Room Air Oxygen Flow Rate 04/24/25 14:39 04/24/25 14:54 04/24/25 15:00 Temperature 96.8 F L 96.8 F L Pulse Rate Pulse Rate [Right Pulse Oximeter] 50 L 50 L Respiratory Rate 15 16 16 Blood Pressure Blood Pressure [Right Arm] 102/69 101/73 Pulse Oximetry 93 96 94 Oxygen Delivery Method Room Air Room Air Room Air Oxygen Flow Rate 04/24/25 15:09 04/24/25 15:39 04/24/25 16:09 Temperature 96.8 F L 96.8 F L 96.8 F L Pulse Rate Pulse Rate [Right Pulse Oximeter] 51 L 54 L 55 L Respiratory Rate 16 16 16 Blood Pressure Blood Pressure [Right Arm] 132/89 129/73 120/75 Pulse Oximetry 96 94 94 Oxygen Delivery Method Room Air Room Air Room Air Oxygen Flow Rate 2 04/24/25 17:09 04/24/25 18:07 04/24/25 18:24 Temperature 96.8 F L 96.8 F L 97.3 F L Pulse Rate Pulse Rate [Right Pulse Oximeter] 51 L 57 L 57 L Respiratory Rate 16 16 18 Blood Pressure Blood Pressure [Right Arm] 119/77 132/78 135/66 Pulse Oximetry 94 96 97 Oxygen Delivery Method Room Air Room Air Room Air Oxygen Flow Rate 04/24/25 19:00 04/24/25 20:09 04/24/25 21:25 Temperature 96.8 F L 97.3 F L 97.3 F L Pulse Rate Pulse Rate [Right Pulse Oximeter] 57 L 58 L 58 L Respiratory Rate 16 18 18 Blood Pressure Blood Pressure [Right Arm] 119/82 100/73 100/73 Pulse Oximetry 94 96 96 Oxygen Delivery Method Room Air Room Air Room Air Oxygen Flow Rate 04/24/25 23:00 04/24/25 23:15 04/25/25 03:00 Temperature 97.4 F L 97.9 F Pulse Rate Pulse Rate [Right Pulse Oximeter] 57 L 72 Respiratory Rate 18 18 18 Blood Pressure Blood Pressure [Right Arm] 105/72 125/79 Pulse Oximetry 91 91 93 Oxygen Delivery Method Room Air Room Air Room Air Oxygen Flow Rate 04/25/25 07:00 04/25/25 07:00 04/25/25 07:00 Temperature 97.9 F Pulse Rate Pulse Rate [Right Pulse Oximeter] 73 Respiratory Rate 16 16 16 Blood Pressure Blood Pressure [Right Arm] 152/91 H Pulse Oximetry 97 97 Oxygen Delivery Method Room Air Room Air Oxygen Flow Rate Assessment and Plan Assessment and plan (1) Status post total knee replacement, right: Problem details: 04/24/25 Dr. Lowery Status: Acute Assessment and Plan: - Complete 23 hour perioperative antibiotics. - PT/OT consults for education and assistance. - Weight bear as tolerated with a walker for assistance. - Prescribed analgesics as needed. Patient is content with current narcotic medications. Minimize narcotic pain medication use; wean off and discontinue as soon as possible. - DVT prophylaxis: aspirin 81 mg BID x 35 days. Also, frequent ambulation and ankle pumps when sedentary. - Social consult for discharge planning. - Anticipate patient will be discharged to home later today if the patient remains medically stable, pain is controlled and is safe with ambulation. - Return to clinic in 1 week for a wound check. Mepilex dressing will be removed at this appointment. Remove sooner if dressing becomes saturated. - Return to clinic in [address] Lowery. - Phone Orthopedics with any questions or concerns. [phone]
[2025-04-25] MEDS: POTASSIUM CHLORIDE 10 MEQ CAPSULE ER 20 MEQ PO (09:25)
[2025-04-25] MEDS: ROSUVASTATIN CALCIUM 10 MG TABLET 40 MG PO (09:25)
[2025-04-25] MEDS: ASPIRIN 81 MG TABLET EC PO (09:26)
[2025-04-25] MEDS: SENNOSIDES 1 TAB TABLET 2 TAB PO (09:26)
[2025-04-25] MEDS: METOPROLOL SUCCINATE (XL) 50 MG TAB PO (09:26)
--- NOTE | 2025-04-25 10:32 | PC.NURSE ---
Discharge: patient alert and oriented x4. VSS, on RA tolerating a reg diet. Patient ambulating sba to BR and chair for meals. Patient using active ice to OP site. dressing to right knee, C/D/I. Discharged today at 1025 to home accompanied by spouse. IV removed tip intact. Discharge instructions given and signed, patient verbalized understanding of instructions. Belongings sheet signed.
== END 2025-04-25 10:25 | disposition home or self-care (01) ==
LOC: OR 08:23 → MEDSURG 08:24
PROVIDERS: PCP Family Medicine; Visit Provider Orthopaedic Surgery
PROC: (CPT 27447; principal; 2025-04-24 09:45)
DX: M17.11 Unilateral primary osteoarthritis, right knee (principal); G89.18 Other acute postprocedural pain; G47.33 Obstructive sleep apnea (adult) (pediatric); E11.9 Type 2 diabetes mellitus without complications; E66.9 Obesity, unspecified; Z68.41 Body mass index [BMI] 40.0-44.9, adult; Z96.652 Presence of left artificial knee joint; I10 Essential (primary) hypertension; R91.1 Solitary pulmonary nodule; E78.1 Pure hyperglyceridemia; M10.9 Gout, unspecified
CPT/HCPCS: 27447; 01402; 64447; 64454; 73560; 76942; 82962; 97110; 97116; 97161; 97165; 97530; A9270; C1776; J0665; J0690; J1171; J2250; J2405; J2704; J3010; J3490; J7120